=== PATIENT | female | born 1995 | race Asian ===

== ENCOUNTER 2019-06-26 11:48 | Emergency (ER) | payer BC ==
[2019-06-26 12:02] VITALS: BP 110/68
[2019-06-26 12:15] LABS: Influenza A Molecular POSITIVE (Negative)
[2019-06-26] MEDS ORDERED: Oseltamivir CAP* 75 MG CAP PO ONE ×2 (12:23)
--- NOTE | 2019-06-26 12:25 | UC ---
FLU HPI - HPI Summary HPI Summary: 24-year-old woman comes in with influenza-like symptoms for 2 days. She has fevers chills body aches. Does have a sore throat. Minimal rhinorrhea. She has taken [id number] medicines which do help with the symptoms. Patient reports she didn't have influenza vaccination this season. - History of Current Complaint Chief Complaint: UCRespiratory Stated Complaint: SORE THROAT, FEVER, BODY ACHES Time Seen by Provider: 06/26/19 11:56 Hx Last Menstrual Period: Mirena IUD Pain Intensity: 4 - Allergy/Home Medications Allergies/Adverse Reactions: Allergies Allergy/AdvReac Type Severity Reaction Status Date / Time No Known Allergies Allergy Verified 06/26/19 11:57 Home Medications: Home Medications Ascorbic Acid TAB* [Vitamin C TAB*] 500 mg PO DAILY 06/26/19 [History Confirmed 06/26/19] Dm/PE/Acetaminophen/Doxylamine [Lexis-Sullivan Plus Day-Night Cp] 1 each PO SEE INSTRUCTIONS PRN 06/26/19 [History Confirmed 06/26/19] Levonorgestrel (Iud) [Mirena IUD] 20 mcg IU ONCE 06/26/19 [History Confirmed ] Multivitamins/Minerals TAB* [Theragran/minerals TAB*] 1 tab PO DAILY 06/26/19 [ History Confirmed 06/26/19] PMH/Surg Hx/FS Hx/Imm Hx Previously Healthy: Yes - Surgical History Surgical History: Yes Surgery Procedure, Year, and Place: [place] Teeth Extractions - Family History Known Family History: Positive: Non-Contributory - Social History Alcohol Use: Weekly Substance Use Type: None Smoking Status (MU): Never Smoked Tobacco Review of Systems All Other Systems Reviewed And Are Negative: Yes Constitutional: Positive: Fever, Chills, Other - SEE HPI Skin: Positive: Negative Eyes: Positive: Negative ENT: Positive: Sore Throat, Nasal Discharge Respiratory: Positive: Negative Cardiovascular: Positive: Negative Gastrointestinal: Positive: Negative Motor: Positive: Negative Neurovascular: Positive: Negative Musculoskeletal: Positive: Myalgia Neurological: Positive: Negative Psychological: Positive: Negative Is Patient Immunocompromised?: No Physical Exam Triage Information Reviewed: Yes Appearance: No Pain Distress, Well-Nourished, Ill-Appearing - MILD Vital Signs: Initial Vital Signs Temp 98.8 F 06/26/19 11:55 Pulse 84 06/26/19 11:55 Resp 16 06/26/19 11:55 BP 110/68 06/26/19 11:55 Pulse Ox 97 06/26/19 11:55 Vital Signs Reviewed: Yes Eye Exam: Normal Eyes: Positive: Conjunctiva Clear ENT: Positive: Pharynx normal, TMs normal Neck: Positive: Supple Respiratory: Positive: Lungs clear, Normal breath sounds, No respiratory distress Musculoskeletal: Positive: Strength Intact, ROM Intact Neurological: Positive: Alert Psychological: Positive: Age Appropriate Behavior Skin Exam: Normal Flu Course/Dx - Differential Dx/Diagnosis Provider Diagnosis: Influenza A Discharge ED - Sign-Out/Discharge Documenting (check all that apply): Patient Departure All imaging exams completed and their final reports reviewed: No Studies - Discharge Plan Condition: Stable Disposition: HOME Prescriptions: Oseltamivir CAP* [Tamiflu CAP*] 75 mg PO BID #7 cap Patient Education Materials: Influenza (ED) Forms: *Work Release Referrals: [facility] [place] [facility] [Outside] Additional Instructions: FOLLOW UP WITH YOUR DOCTOR IF NOT COMPLETELY IMPROVED. GET REEVALUATED SOONER IF NOT IMPROVING OR WORSE OR ANY QUESTIONS OR CONCERNS. - Billing Disposition and Condition Condition: STABLE Disposition: Home
== END 2019-06-26 12:36 | disposition home or self-care (01) ==
LOC: UCCORT 11:48
DX: J11.1 Influenza due to unidentified influenza virus with other respiratory manifestations (principal)
CPT/HCPCS: 87651; 99212; A9270-GY; G0463